=== PATIENT | female | born 1955 | race Two or more races ===

== ENCOUNTER 2025-07-27 12:44 | Emergency (ER) | payer MEDICARE, MEDICAID ==
[~2025-07-27] VITALS: Ht 165.1 cm; Wt 73.0 kg
[2025-07-27 12:47] VITALS: O2SAT 95
[2025-07-27] MEDS: TETANUS, DIPHTHERIA, PERTUSSIS VAC/PF 0.5ML (>10YR OLD) IM ONE (14:21)
[2025-07-27] MEDS: ACETAMINOPHEN 500MG TABLET PO ONE (14:21)
[2025-07-27] MEDS ORDERED: TOPUD MT (16:35)
[2025-07-27] MEDS ORDERED: BO1 TP (16:35)
[2025-07-27 17:08] VITALS: BP 152/90; PULSE 77; RESP 16; TEMP 36.7; O2SAT 96
== END 2025-07-27 17:10 | disposition home or self-care (01) ==
LOC: ER 12:44
DX: S01.91XA Laceration without foreign body of unspecified part of head, initial encounter (principal); I10 Essential (primary) hypertension; E78.00 Pure hypercholesterolemia, unspecified; Z79.82 Long term (current) use of aspirin; X58.XXXA Exposure to other specified factors, initial encounter; Y93.89 Activity, other specified; Y92.89 Other specified places as the place of occurrence of the external cause; Y99.8 Other external cause status
CPT/HCPCS: 12001; 90471; 90715; 99285